=== PATIENT | female | born 1955 | race Caucasian/White ===

== ENCOUNTER → 2022-02-10 10:37 | Outpatient (CLI) | payer OTHER, MEDICAID, SELFPAY ==
[2022-02-10 13:57] LABS: Free T3, Triiodothyronine Free 3.46 pg/mL (2.77-5.27); Free T4, Direct Thyroxine 1.33 ng/dL (0.78-2.19)
[2022-02-10 14:11] LABS: Thyroid Stimulating Hormone 0.295 uIU/mL (0.47-4.68)
== END ==
PROVIDERS: Referring Provider Internal Medicine Endocrinology, Diabetes & Metabolism; Visit Provider Internal Medicine Endocrinology, Diabetes & Metabolism
DX: E03.9 Hypothyroidism, unspecified (principal)
CPT/HCPCS: 36415; 84439; 84443; 84481